=== PATIENT | female | born 1960 | race Two or more races ===

== ENCOUNTER 2024-05-02 13:07 | Emergency (ER) | payer OTHER ==
[~2024-05-02] VITALS: Ht 152.4 cm; Wt 67.1 kg
[2024-05-02] MEDS ORDERED: NEURONTIN600 M1 PO (14:40)
[2024-05-02] MEDS ORDERED: GLUMETZA500 MG PO (14:40)
[2024-05-02] MEDS ORDERED: ONDANSETRON HCL 2 MG/ML VIAL ONE ×3 (16:28)
[2024-05-02] MEDS ORDERED: TAMSULOSIN HCL 0.4 MG CAP PO ONE ×2 (16:28→16:30)
[2024-05-02] MEDS ORDERED: FAMOTIDINE/PF 20 MG/2 ML VIAL ONE (16:28)
[2024-05-02] MEDS ORDERED: FAMOTIDINE/PF 20 MG/2 ML VIAL IV ONE (16:30)
[2024-05-02] MEDS ORDERED: 0.9 % SODIUM CHLORIDE 500 ML IV ONE (16:30)
[2024-05-02] MEDS ORDERED: ONDANSETRON HCL 2 MG/ML VIAL IV ONE (16:30)
[2024-05-02 17:02] LABS: HEMATOCRIT 40.9 % (36.0-45.00); HEMOGLOBIN 13.3 g/dL (12.0-15.00); MEAN CELL VOLUME 85.4 fL (80.00-100.00); MEAN CORPUSCULAR HEMOGLOBIN 27.8 pg (27.00-32.0); MEAN CORPUSCULAR HGB CONC 32.6 g/dl (32.0-36.0); PLATELET COUNT 289 K/uL (150-450); RED BLOOD COUNT 4.78 M/uL (4.00-6.00); RED CELL DISTRIBUTION WIDTH 14.4 % (11.5-14.5)
[2024-05-02 17:18] LABS: PARTIAL THROMBOPLASTIN TIME 27.6 SECONDS (22.0-34.0); PROTHROMBIN TIME 10.9 SECONDS (9.0-11.5)
[2024-05-02 17:22] LABS: ALBUMIN 3.8 gm/dL (3.4-5.0); BILIRUBIN TOTAL 0.37 mg/dL (0.3-1.2); CALCIUM 9.8 mg/dL (8.5-10.1); CREATININE SERUM 0.69 mg/dL (0.55-1.02); GFR 85.65; GLOBULINA 3.8 G/DL (2.4-3.5); POTASSIUM 4.18 mEq/L (3.5-5.1); TOTAL PROTEIN 7.6 gm/dL (6.4-8.2)
[2024-05-02 17:50] LABS: URINE APPEARANCE Clear; URINE BILIRRUBIN Negative (NEGATIVE); URINE BLOOD Negative; URINE COLOR Yellow; URINE GLUCOSE Negative (NEGATIVE); URINE KETONE Negative (NEGATIVE); URINE LEUKOCYTE Small; URINE NITRATE Negative; URINE PROTEIN Negative (NEGATIVE); URINE UROBILINOGEN 0.2 E.U./dl
[2024-05-02 17:54] LABS: URINE BACTERIA 39.1 uL (0.0-1933); URINE EPITHELIAL CELLS 14.4 uL (0.0-38.8); URINE WBC 65.7 uL (0.0-23.2)
[2024-05-02 17:55] LABS: URINE RBC 1.3 uL (0.0-20.8)
[2024-05-02] MEDS ORDERED: PYRIDIUM100 M1 PO (18:28)
[2024-05-02] MEDS ORDERED: ORPHENADRINE CITRATE 30 MG/ML AMPUL ONE (18:42)
[2024-05-02] MEDS ORDERED: ACETAMINOPHEN 500 MG GEL..CAP PO ONE ×2 (18:43→18:45)
[2024-05-02] MEDS ORDERED: ORPHENADRINE CITRATE 30 MG/ML AMPUL IM ONE (18:45)
== END 2024-05-02 19:09 ==
LOC: ER 13:09
PROVIDERS: Emergency Medicine
DX: R10.9 Unspecified abdominal pain (principal); E11.9 Type 2 diabetes mellitus without complications; Z79.84 Long term (current) use of oral hypoglycemic drugs; Z88.0 Allergy status to penicillin; Z88.6 Allergy status to analgesic agent
CPT/HCPCS: 36415; 74176; 96365; 96366; 96372; 99284; J2360; J2405; J3490; J7042